=== PATIENT | male | born 1965 | race Caucasian/White ===

== ENCOUNTER 2017-10-06 00:54 | Inpatient (IN) | payer OTHER ==
[~2017-10-06] VITALS: Ht 180.3 cm; Wt 116.1 kg
[~2017-10-06 00:54] MED LIST: KEFLEX500 MG PO; NOHOMEMEDICATIONS
[2017-10-06 01:07] VITALS: BP 172/117
[2017-10-06 01:38] LABS: ABSOLUTE EOSINOPHILS 0.2 thou/uL (0.0-0.7); ABSOLUTE LYMPHOCYTES 1.8 thou/uL (0.8-5.3); ABSOLUTE MONOCYTES 0.5 thou/uL (0.0-1.2); ABSOLUTE NEUTROPHILS 4.8 thou/uL (1.6-8.1); BASOPHILS 0.7 %; EOSINOPHILS 2.6 %; HEMATOCRIT 47.7 % (42.0-52.0); HEMOGLOBIN 15.9 gm/dL (14.0-18.0); LYMPHOCYTES 24.4 %; MCH 28.9 pg (26.0-34.0); MCHC 33.4 g/dL (28.0-37.0); MCV 86.5 fL (80.0-100.0); MONOCYTES 6.9 %; MPV 7.9 fl. (7.2-11.1); NUCLEATED RBCS 0 /100WBC; PLATELET COUNT* 209 thou/uL (150-400); POLYS 65.4 %; RBC 5.51 mil/uL (4.50-6.00); RDW-CV 13.6 % (10.5-14.5); WBC 7.3 thou/uL (4.0-11.0)
[2017-10-06 01:42] LABS: AMP/METHAMP POSITIVE (Negative); BARBITURATES Negative (Negative); BENZODIAZEPINES Negative (Negative); COCAINE Negative (Negative); METHADONE Negative (Negative); OPIATES Negative (Negative); PCP Negative (Negative); THC Negative (Negative)
[2017-10-06 01:49] LABS: URINE BILIRUBIN NEGATIVE (Negative); URINE BLOOD NEGATIVE (Negative); URINE CLARITY CLEAR; URINE COLOR YELLOW; URINE GLUCOSE-RANDOM 3+ (Negative); URINE KETONES NEGATIVE (Negative); URINE LEUKOCYTES-REFLEX NEGATIVE (Negative); URINE NITRITE-REFLEX NEGATIVE (Negative); URINE PROTEIN NEGATIVE (Negative); URINE SPECIFIC GRAVITY <= 1.005 (1.005-1.030); URINE UROBILINOGEN 0.2 E.U./dl (0.2-1.0)
[2017-10-06 01:57] LABS: CALCIUM 9.1 mg/dL (8.5-10.1); CREATININE 1.6 mg/dL (0.6-1.3); POTASSIUM 5.1 mmol/L (3.5-5.1)
[2017-10-06 02:07] LABS: ALBUMIN 3.6 g/dL (3.4-5.0); TOTAL BILIRUBIN 0.6 mg/dL (<0.1-1.0); TOTAL PROTEIN 7.4 g/dL (6.4-8.2)
[2017-10-06 02:42] LABS: BE -2.9 mmol/L (-2 to +3); HCO3 22.2 mmol/L (22.0-26.0); PCO2 39.6 mmHg (35.0-45.0); PO2 79.8 mmHg (75.0-100.0); pH 7.366 (7.340-7.450)
[2017-10-06 03:15] VITALS: BP 164/103
--- NOTE | 2017-10-06 05:20 | NUR ---
PATIENT ARRIVED ON UNIT AT APPROX 0315. PATIENT ALERT AND ORIENTED TIMES FOUR. VERBALIZED UNDERSTANDING ON NUTRITION AND HAVING TO MAKE CHANGES IN ORDER TO HAVE THIS NOT HAPPEN AGAIN. UP AD JEFF. NO SKIN ISSUES. MAY NEED NICOTINE PATCH IF STAYING. PATIENTS BLOOD SUGAR IS DROPPING RAPIDLY ON THE DRIP. BP MEDICATION GIVEN. STATES THAT HE "RAN OUT OF HIS PRESCRIPTION AT HOME AND THE DR WOULD NOT REORDER THEM WITHOUT BLOOD WORK" NO COMPLAINTS OF PAIN OR DISCOMFORT.
[2017-10-06 07:08] LABS: HEMATOCRIT 43.5 % (42.0-52.0); HEMOGLOBIN 14.9 gm/dL (14.0-18.0); MCH 28.7 pg (26.0-34.0); MCHC 34.3 g/dL (28.0-37.0); MCV 83.5 fL (80.0-100.0); MPV 7.7 fl. (7.2-11.1); RBC 5.21 mil/uL (4.50-6.00); RDW-CV 13.5 % (10.5-14.5); WBC 7.6 thou/uL (4.0-11.0)
[2017-10-06 07:38] LABS: ALBUMIN 3.1 g/dL (3.4-5.0); CALCIUM 8.3 mg/dL (8.5-10.1); CREATININE 1.1 mg/dL (0.6-1.3); TOTAL BILIRUBIN 0.5 mg/dL (<0.1-1.0); TOTAL PROTEIN 6.3 g/dL (6.4-8.2)
[2017-10-06 07:39] LABS: POTASSIUM 3.3 mmol/L (3.5-5.1)
[2017-10-06 08:00] VITALS: BP 120/81
[2017-10-06 08:06] LABS: CHOLESTEROL 146 mg/dL (<200); HDL CHOLESTEROL 26 mg/dL (>40); LDL CHOLESTEROL 71 mg/dL (<100); TC:HDL 5.6 Ratio (Not establshd); TRIGLYCERIDE 245 mg/dL (<150); VLDL 49 mg/dL (<40)
[2017-10-06 08:07] LABS: SERUM ASSESSMENT Clear
[2017-10-06 14:19] VITALS: BP 120/81
--- NOTE | 2017-10-06 14:24 | NUR ---
CM ASSESSMENT: Pt is A&O. Resides at home with his sig other. Independent with ADLs, continues to work outside of the home. Positive for meth, CM discussed and Pt declined resources. Updated nurse, nurse also spoke with Pt regarding cessation. No DME. No hx of HH or SNF. Spoke with Dr Clahoun, Pt needs a PCP, new diabetic. Pt has no insurance. RAJESH scheduled an appt for Pt at [facility] with Bozena Toribio NP for October 22 at 940am. CM put info in Pt's dc summary. Pt in agreement with going to the appointment and understands the importance of the appt. CM to fax dc info to [facility] at dc [phone]
--- NOTE | 2017-10-06 16:22 | NUR ---
PAITNET CURRENTLY IN [employer] FOR HEPATOBILIARY SCAN. VITAL SIGNS STABLE AND PAITNET IN NO APPARENT DISTRESS AT THIS TIME. SR ON MONITOR. PAITNET DENIES PAIN. IV FLUID INFUSING PER ORDERS. AOX4 AND UP AD RODRIGO IN ROOM. PAITNET IS ON ROOM AIR. HOURLY ROUNDING COMPLETED FOR PATIENT SAFETY.
[2017-10-06 18:07] LABS: GLYCOHEMOGLOBIN (HGB A1C) 11.5 % (4.8-5.6)
[2017-10-06 20:00] VITALS: BP 152/101
--- NOTE | 2017-10-07 00:45 | NUR ---
ASSUMED PATIENT CARE AT 1900. PATIENT ALERT AND ORIENTED TIMES FOUR. FAMILY AT BEDSIDE AND VERY WORRIED. REASSURED FAMILY. EDUCATION DONE WITH PATIENT AND FAMILY. MANAGER HUMAN CAPITAL COMPLETED DOCUMENTED. IV INFUSING WELL. RFUSED LOVENOX, STATES " I DO NOT WANT TO TAKE ANYTING, NO PAIN MEDS, ETC" NO COMPLAINTS OF PAIN OR DISCOMFORT. WILL CONTINUE TO MONITOR.
[2017-10-07 00:53] VITALS: BP 118/75
[2017-10-07 04:29] VITALS: BP 135/93
[2017-10-07 05:18] LABS: HEMATOCRIT 43.8 % (42.0-52.0); MCH 28.8 pg (26.0-34.0); MCHC 34.2 g/dL (28.0-37.0); MCV 84.2 fL (80.0-100.0); RBC 5.21 mil/uL (4.50-6.00); RDW-CV 14.1 % (10.5-14.5); WBC 7.4 thou/uL (4.0-11.0)
[2017-10-07 05:47] LABS: ALBUMIN 2.9 g/dL (3.4-5.0); CALCIUM 8.1 mg/dL (8.5-10.1); CREATININE 1.1 mg/dL (0.6-1.3); MAGNESIUM 1.9 mg/dL (1.8-2.4); POTASSIUM 4.1 mmol/L (3.5-5.1); TOTAL BILIRUBIN 0.4 mg/dL (<0.1-1.0); TOTAL PROTEIN 5.9 g/dL (6.4-8.2)
--- NOTE | 2017-10-07 07:03 | NUR ---
Patient and sig other rested in bed through the night. No complaints of pain or discomot. Hopes to be able to go home soon. Non compliant with diet. Blood sugars reflect this. Has been getting moderate dose sliding scale. IV taped at this time so patient can get up to shower. Hourlyrounding completed as documented. Up ad je
[2017-10-07 07:30] VITALS: BP 138/111
--- NOTE | 2017-10-07 10:54 | NUR ---
RECEIVED PT CARE 0700. PT IS ALERT AND ORIENTED X4. VSS. INTELLIGENCE OPERATIONS SPECIALIST TRACING SR. PATIENT DENIES ANY SOA. O2 SAT 95% ON ROOM AIR. PATIENT IS VERY ANXIOUS TO DISCHRAGE HOME. IV SALINE LOCKED. PATIENT REMOVED HIS INTELLIGENCE OPERATIONS SPECIALIST TO SHOWER AND REQUESTED NOT TO PUT IT BACK ON AFTER HIS SHOWER. AM ASSESSMENT CHARTED. MEDS PER SEP. DR PRIUTT ON FLOOR. WILL CONTINUE TO MONITOR.
[2017-10-07 11:49] VITALS: BP 150/99
[2017-10-07 15:55] VITALS: BP 149/98
--- NOTE | 2017-10-07 18:36 | NUR ---
PATIENT PROGRESSING TOWARDS GOALS. BLOOD SUGARS BETTER CONTROLLED. TOLERATING HIS DIET WELL WITHOUT NAUSEA OR VOMITING. UP INDEPENDENTLY IN ROOM WITH BATHROOM PRIVILEDGES. GAIT IS STEADY. MANAGER COMPENSATION CONTINUES TO TRACE SR. PLANNING FOR DC TOMORROW IF STABLE.
[2017-10-07 20:00] VITALS: BP 139/76
[2017-10-08] VITALS: BP 154/96
[2017-10-08 04:00] VITALS: BP 146/94
--- NOTE | 2017-10-08 04:35 | NUR ---
Assumed patient care at 1900/ Patient alert and oriented times four. Up ad je in room. No complains of pain or discomort noted. Insulin given per sliing scale. Education on diet given to patient. HOurly rounding and communication engineer completed as documented.
--- NOTE | 2017-10-08 07:25 | NUR ---
CHANGE OF SHIFT, BEDSIDE REPORT GIVEN ASSUMED PATIENT CARE PATIENT ASLEEP IN BED WITH GIRLFRIEND
[2017-10-08 08:00] VITALS: BP 142/89
--- NOTE | 2017-10-08 08:30 | NUR ---
MALE MODEL INFORMED NURSE PATIENT NOT FOUND IN ROOM HEART MONITOR LEFT ON BED AND BELONGINGS STILL IN ROOM
--- NOTE | 2017-10-08 09:30 | NUR ---
NOTIFIED DR PRUITT AND FRAMING MILL SUPERVISOR AND SECURITY THAT PATIENT HAS BEEN OUT OF ROOM FOR APPROXIMATELY 1 HR WILL CONTINUE TO MONITOR
--- NOTE | 2017-10-08 10:20 | NUR ---
PATIENT BACK TO AND GIRLFRIEND PRESENT NOTIFIED DR PRUITT ORDERS GIVEN FOR URINE DRUG SCREEN AND DR PRUITT WILL BE HERE SOON TO SEE PATIENT AND POTENIAL DISCHARGE PENDING
[2017-10-08] MEDS ORDERED: LISINOPRIL10 MG PO (12:15)
[2017-10-08] MEDS ORDERED: GLUCOTROL5 MG PO (12:16)
[2017-10-08] MEDS ORDERED: METFORMIN HCL500 MG PO (12:17)
[2017-10-08 12:21] VITALS: BP 120/81
--- NOTE | 2017-10-08 12:30 | NUR ---
PATIENT DCD TO HOME ALL DC INSTRUCTIUONS GIVEN AND SIGNED COPIES PROVIDED IV AND HEART MONITOR REMOVED AND PERSONAL BELONGINGS RETURNED PATIENT LEFT AMBULATOIRY GOOD CONDITION
== END 2017-10-08 13:25 | disposition home or self-care (01) | DRG 638 ==
LOC: M.ERS 00:54 → M.TBA-ER 02:32 → M.2W 02:32
PROVIDERS: Emergency Medicine; Internal Medicine; ADMIT Internal Medicine
DX: E11.00 Type 2 diabetes mellitus with hyperosmolarity without nonketotic hyperglycemic-hyperosmolar coma (NKHHC) (principal); N17.9 Acute kidney failure, unspecified; K59.00 Constipation, unspecified; I16.0 Hypertensive urgency; K80.20 Calculus of gallbladder without cholecystitis without obstruction; F15.90 Other stimulant use, unspecified, uncomplicated; Z79.899 Other long term (current) drug therapy

== ENCOUNTER 2020-02-10 02:38 | Inpatient (IN) | payer OTHER ==
[~2020-02-10] VITALS: Ht 182.9 cm; Wt 117.4 kg
[2020-02-10] VITALS (7 sets, daily range): BP systolic 138–183; BP diastolic 88–125
[~2020-02-10 02:38] MED LIST changes: +GLUCOTROL5 MG PO; +LISINOPRIL10 MG PO; +METFORMIN HCL500 MG PO
[2020-02-10 03:02] LABS: ABSOLUTE BASOPHILS 0.1 thou/uL (0.0-0.2); ABSOLUTE EOSINOPHILS 0.3 thou/uL (0.0-0.7); ABSOLUTE LYMPHOCYTES 2.5 thou/uL (0.8-5.3); ABSOLUTE MONOCYTES 0.7 thou/uL (0.0-1.2); BASOPHILS 0.8 %; EOSINOPHILS 2.9 %; HEMATOCRIT 41.6 % (42.0-52.0); HEMOGLOBIN 14.6 gm/dL (14.0-18.0); LYMPHOCYTES 26.3 %; MCH 29.7 pg (26.0-34.0); MCHC 35.1 g/dL (28.0-37.0); MCV 84.8 fL (80.0-100.0); MONOCYTES 7.3 %; MPV 7.6 fl. (7.2-11.1); NUCLEATED RBCS 0 /100WBC; PLATELET COUNT* 238 thou/uL (150-400); POLYS 62.7 %; RDW-CV 13.6 % (10.5-14.5); WBC 9.6 thou/uL (4.0-11.0)
[2020-02-10 03:19] LABS: CALCIUM 8.8 mg/dL (8.5-10.1); CREATININE 4.3 mg/dL (0.6-1.3); POTASSIUM 3.8 mmol/L (3.5-5.1)
[2020-02-10 03:21] LABS: PROTIME 10.7 Seconds (9.20-11.50)
[2020-02-10 03:24] LABS: ALBUMIN 4.1 g/dL (3.4-5.0); TOTAL BILIRUBIN 0.4 mg/dL (<0.1-1.0)
[2020-02-10 03:45] LABS: URINE BILIRUBIN NEGATIVE (Negative); URINE BLOOD 1+ (Negative); URINE CLARITY CLEAR; URINE COLOR YELLOW; URINE GLUCOSE-RANDOM TRACE (Negative); URINE KETONES NEGATIVE (Negative); URINE LEUKOCYTES-REFLEX NEGATIVE (Negative); URINE NITRITE-REFLEX NEGATIVE (Negative); URINE PROTEIN TRACE (Negative); URINE UROBILINOGEN 0.2 E.U./dl (0.2-1.0)
[2020-02-10 03:54] LABS: AMP/METHAMP POSITIVE (Negative); BARBITURATES Negative (Negative); BENZODIAZEPINES Negative (Negative); COCAINE Negative (Negative); METHADONE Negative (Negative); OPIATES Negative (Negative); PCP Negative (Negative); THC Negative (Negative)
[2020-02-10 04:13] LABS: BACTERIA-REFLEX 1-9 Few /HPF (None Seen); CASTS None Seen /LPF (None Seen); CRYSTALS None Seen /LPF (None Seen); MUCUS 0-3 Light strn/LPF (None Seen); SQUAMOUS 0-3 Few /LPF (0-3); URINE RBC 3-10 Few /HPF (0-2); URINE WBC-REFLEX None Seen /HPF (0-5)
[2020-02-10 10:17] LABS: ALBUMIN 4.1 g/dL (3.4-5.0); CALCIUM 9.1 mg/dL (8.5-10.1); CREATININE 4.3 mg/dL (0.6-1.3); POTASSIUM 4.3 mmol/L (3.5-5.1); TOTAL BILIRUBIN 0.5 mg/dL (<0.1-1.0); TOTAL PROTEIN 7.9 g/dL (6.4-8.2)
--- NOTE | 2020-02-10 10:33 | EKG ---
[place] [address] ELECTROCARDIOGRAM REPORT Name: KRYSTEN MCCULLOUGHIN Nadege Room: [address] ADM IN [facility].#: [id number] Admission: 02/10/20 Attend Phys: Alida Calhoun, Discharge: Date of : 67 Date of Service: 02/10/20 0301 Report #: [id number] THIS REPORT FOR: //name// [facility] ED Test Date: 2020-02-10 Test Time: 03:01:14 Pat Name: ALL MCCULLOUGH Department: Room: [facility] Gender: M Technical Director: LORENE : 1965 Requested By: Trenton Gamez Order Number: [id number] MD: Jeff Augustin Measurements Intervals [place] Rate: 86 P: 43 [place]: 170 QRS: 97 QRSD: 166 T: 3 QT: 427 QTc: 511 Interpretive Statements Sinus rhythm Probable left atrial enlargement RBBB and LPFB No previous ECG available for comparison Electronically Signed On 02-10-2020 10:33:43 CDT by Jeff Augustin [email or web address] <ELECTRONICALLY SIGNED> By: Jeff Augustin MD, [facility] 02/10/20 1033 0301 030 Jeff Augustin MD, [facility] /EPI
[2020-02-11] VITALS (7 sets, daily range): BP systolic 138–189; BP diastolic 87–122
[2020-02-11 05:23] LABS: ABSOLUTE EOSINOPHILS 0.2 thou/uL (0.0-0.7); ABSOLUTE LYMPHOCYTES 1.6 thou/uL (0.8-5.3); ABSOLUTE MONOCYTES 0.5 thou/uL (0.0-1.2); ABSOLUTE NEUTROPHILS 5.1 thou/uL (1.6-8.1); BASOPHILS 0.6 %; EOSINOPHILS 2.6 %; HEMATOCRIT 41.9 % (42.0-52.0); HEMOGLOBIN 14.6 gm/dL (14.0-18.0); LYMPHOCYTES 21.9 %; MCH 29.6 pg (26.0-34.0); MCHC 34.9 g/dL (28.0-37.0); MCV 84.7 fL (80.0-100.0); MONOCYTES 6.8 %; MPV 7.7 fl. (7.2-11.1); NUCLEATED RBCS 0 /100WBC; PLATELET COUNT* 224 thou/uL (150-400); POLYS 68.1 %; RBC 4.95 mil/uL (4.50-6.00); RDW-CV 13.7 % (10.5-14.5); WBC 7.4 thou/uL (4.0-11.0)
[2020-02-11 05:34] LABS: ALBUMIN 3.9 g/dL (3.4-5.0); CALCIUM 8.8 mg/dL (8.5-10.1); CREATININE 4.7 mg/dL (0.6-1.3); MAGNESIUM 2.1 mg/dL (1.8-2.4); PHOSPHORUS* 5.1 mg/dL (2.5-4.9); POTASSIUM 4.4 mmol/L (3.5-5.1)
[2020-02-11 05:43] LABS: ALKALINE PHOSPHATASE 77 U/L (46-116); ANION GAP 12 mmol/L (7-16); BUN 60 mg/dL (7-18); CALCIUM 8.9 mg/dL (8.5-10.1); CHLORIDE 102 mmol/L (98-107); CHOLESTEROL 204 mg/dL (<200); CO2 24 mmol/L (21-32); CREATININE 4.7 mg/dL (0.6-1.3); GLUCOSE 114 mg/dL (70-99); HDL CHOLESTEROL 29 mg/dL (>40); LDL CHOLESTEROL 130 mg/dL (<100); POTASSIUM 4.6 mmol/L (3.5-5.1); SGOT 20 U/L (15-37); SGPT 31 U/L (30-65); SODIUM 138 mmol/L (136-145); TOTAL BILIRUBIN 0.6 mg/dL (<0.1-1.0); TOTAL PROTEIN 7.3 g/dL (6.4-8.2); TRIGLYCERIDE 229 mg/dL (<150); VLDL 46 mg/dL (<40)
[2020-02-11 05:46] LABS: SERUM ASSESSMENT Clear
--- NOTE | 2020-02-11 10:52 | CON ---
[address] [address] CONSULTATION Name: ALL MCCULLOUGH Room: [address] IN .R.#: [id number] Admission: 02/10/20 Attend Phys: Alida Calhoun MD Discharge: Date of : 67 Report #: [id number] THIS REPORT FOR: //name// cc: BATSHEVA Roman family physician/PCP BATSHEVA - No family physician/PCP ~ THIS REPORT FOR: //name// CC: BATSHEVA physician/PCP Alida Calhoun DATE OF SERVICE: 02/10/2020 HISTORY OF PRESENT ILLNESS: This patient is a 54-year-old male patient who was seen by me for possibility of stroke. This patient does not provide any reliable history. He has a garbled speech, looks like it is going on for at least a few days. He has told Emergency Room that it is started the day before. His MRI was attempted last night, but he did not cooperate. Multiple abnormalities have been found in this patient. He has a markedly decreased GFR and he is in kidney failure. He did not complete MRI even with Ativan. REVIEW OF SYSTEMS: Very limited. Record indicates that he has high blood pressure and diabetes and uses methamphetamines. He also smokes. It is unknown whether the patient had alcohol use or not. A 14-point review of system was attempted and that is all we could get. PAST MEDICAL HISTORY: Unavailable. FAMILY HISTORY: Unavailable. SOCIAL HISTORY: He uses drugs. PHYSICAL EXAMINATION: His examination was carried out this morning as well as this afternoon. It is very limited. He has a very garbled and virtually un-understandable speech. He moves all 4 extremities. Sometime he will do to the command. He does not appear to have any meningeal sign. He has no respiratory difficulty. His blood pressure is 142/94, respiration is 20, pulse is 82, temperature is 98.1. LABORATORY DATA: His white count is 9.6. He is in kidney failure. His MRI could not be completed. IMPRESSION: Impression is very difficult to form in this patient. This patient may have encephalopathy. On the other hand, this patient also may have had a stroke because he takes methamphetamines. He has not been able to cooperate with MRI, so I am going to cancel the MRI of carotids and we will get a carotid Doppler done. I will get an EEG done. We will see what [place] [address] CONSULTATION Name: JAMELALL Room: [address] IN [facility]#: [id number] Admission: 02/10/20 Attend Phys: Alida Calhoun MD Discharge: Date of : 67 Report #: [id number] about further management after that. Thank you very much for this referral. On two visits about 35 minutes of time was spent taking care of this patient today and majority of that time was spent trying to coordinate his care and trying to consult him which did not work that much. <ELECTRONICALLY SIGNED> By: Mauro Calhoun MD 02/11/20 1052 1406 [id number] Calhoun MD /nt
[2020-02-12 00:27] VITALS: BP 180/104
[2020-02-12 04:30] VITALS: BP 180/120
[2020-02-12 05:38] LABS: GLYCOHEMOGLOBIN (HGB A1C) 6.5 % (4.8-5.6)
[2020-02-12 06:26] VITALS: BP 177/102
[2020-02-12 08:00] VITALS: BP 170/113
--- NOTE | 2020-02-25 13:14 | CON ---
[address] [address] CONSULTATION Name: ALL MCCULLOUGH Nadege Room: [address] IN .R.#: [id number] Admission: 02/10/20 Attend Phys: Alida Calhoun MD Discharge: 02/12/20 Date of : 67 Report #: [id number] THIS REPORT FOR: //name// cc: BATSHEVA Roman family physician/PCP BATSHEVA - No family physician/PCP ~ THIS REPORT FOR: //name// CC: BATSHEVA physician/PCP Alida Calhoun DATE OF SERVICE: 02/10/2020 CONSULTING PHYSICIAN: Dr. Calhoun. REASON FOR CONSULTATION: Acute kidney injury. HISTORY OF PRESENT ILLNESS: A 54-year-old gentleman admitted with altered mental status, concern for possible stroke. Creatinine was 4.3 on admission. In 2018, creatinine was 1.1. He was taking lisinopril. His urine drug screen was positive for amphetamines. Neurology has been consulted. History is obtained largely through chart review. REVIEW OF SYSTEMS: Constitutional, psych, heme, eyes, ENT, respiratory, cardiac, GI, and endocrine, all negative except as documented above and as best as can be ascertained from chart review. PAST MEDICAL HISTORY: Diabetes, hypertension, substance abuse. SOCIAL HISTORY: Positive for tobacco, and urine drug screen positive for methamphetamines. FAMILY HISTORY: Not pertinent in this 54-year-old gentleman. CURRENT MEDICATIONS: Reviewed. PHYSICAL EXAMINATION: VITAL SIGNS: Blood pressure 142/94, pulse 82, respirations 20, temperature 36.7. GENERAL: No acute distress; somnolent. EYES: Closed. EARS: Externally normal. CARDIOVASCULAR: Regular rate. LUNGS: No crackles. ABDOMEN: Soft. MUSCULOSKELETAL: Nontender. PSYCHIATRIC: Altered mental status. [address] [address] CONSULTATION Name: ALL MCCULLOUGH Room: [address]#: [id number] Admission: 02/10/20 Attend Phys: Alida Calhoun MD Discharge: 02/12/20 Date of : 67 Report #: [id number] LABORATORY DATA: White cell count 9.6, hemoglobin 14.6, platelets 238. Sodium 136, potassium 4.3, chloride 100, bicarbonate 24, BUN 57, creatinine 4.3, glucose 111, calcium 9.1, albumin 4.1. ASSESSMENT: 1. Acute kidney injury with admission creatinine of 4.3. In 2018, creatinine was 1.1. CK is 538. This is also in the setting of lisinopril. UA is noted. 2. Rhabdomyolysis with a CK of 538 in the setting of methamphetamine use. 3. Diabetes. 4. Hypertension. 5. Substance abuse with positive marijuana use and urine drug screen positive for methamphetamines. 6. Altered mental status, being evaluated for acute stroke. PLAN: 1. Continue IV fluids. 2. Hematuria, he will need a repeat UA. 3. Check CK in the a.m. 4. Discontinue milk of magnesia. 5. Check labs again in the a.m. Thank you for requesting my opinion in the care and management of this patient. <ELECTRONICALLY SIGNED> By: Kelly Smith MD 02/25/20 1314 1617 2015Alillie Smith MD /nt
--- NOTE | 2020-02-29 20:00 | EEG ---
[address] [address] EEG STUDY REPORT Name: ALL MCCULLOUGH Nadege Room: [address] IN M.R.#: [id number] Admission: 02/10/20 Attend Phys: Alida Calhoun MD Discharge: 02/12/20 Date of : 67 Report #: [id number] THIS REPORT FOR: //name// CC: [facility] physician/PCP Alida Calhoun DATE OF SERVICE: 02/10/2020 This patient is being evaluated for altered mental status. EEG was done by placing the electrode by standard 10-20 system of electrode placement. Both referential and sequential montages were used for recording. Background activity in this patient's EEG is about 7 Hz and 30 microvolts. The patient appeared to be responding poorly during most of this EEG. He also appeared to be asleep during part of this EEG. No active epileptiform activity was noticed. IMPRESSION: This patient's EEG is intermixed with some theta range slowing on both sides. That is a nonspecific abnormality, which can occur with encephalopathy, effect of psychotropic medication, dementia, etc. Clinical correlation is recommended. <ELECTRONICALLY SIGNED> By: Mauro Calhoun MD 02/29/201999 0921Parivan Calhoun MD /nt
== END 2020-02-12 10:45 | disposition left against medical advice (07) | DRG 64 ==
LOC: M.ERS 02:38 → M.2W 04:52 → M.TBA-ER 04:52 → M.2W 05:43
PROVIDERS: Emergency Medicine Emergency Medical Services; Internal Medicine; Internal Medicine Nephrology; ADMIT Internal Medicine; ATTEND Internal Medicine
DX: I63.9 Cerebral infarction, unspecified (principal); G92 Toxic encephalopathy; N17.0 Acute kidney failure with tubular necrosis; M62.82 Rhabdomyolysis; N13.30 Unspecified hydronephrosis; G81.91 Hemiplegia, unspecified affecting right dominant side; E86.0 Dehydration; E11.9 Type 2 diabetes mellitus without complications; I10 Essential (primary) hypertension; F12.10 Cannabis abuse, uncomplicated; F15.10 Other stimulant abuse, uncomplicated; Z79.84 Long term (current) use of oral hypoglycemic drugs; Z79.899 Other long term (current) drug therapy; Z03.818 Encounter for observation for suspected exposure to other biological agents ruled out; R47.81 Slurred speech; R29.810 Facial weakness

== ENCOUNTER 2020-03-09 17:27 | Emergency (ER) | payer OTHER ==
[~2020-03-09] VITALS: Ht 182.9 cm; Wt 99.8 kg
[2020-03-10] MEDS ORDERED: ZOFRAN ODT4 MG DISSOLVE (01:13)
== END 2020-03-09 18:00 ==
LOC: M.ERS 17:27
DX: Z02.89 Encounter for other administrative examinations (principal)

== ENCOUNTER 2020-03-09 23:46 | Emergency (ER) | payer OTHER ==
[~2020-03-09] VITALS: Ht 180.3 cm; Wt 108.9 kg
[2020-03-10 00:16] LABS: ABSOLUTE BASOPHILS 0.1 thou/uL (0.0-0.2); ABSOLUTE EOSINOPHILS 0.3 thou/uL (0.0-0.7); ABSOLUTE LYMPHOCYTES 2.9 thou/uL (0.8-5.3); ABSOLUTE MONOCYTES 0.6 thou/uL (0.0-1.2); ABSOLUTE NEUTROPHILS 4.8 thou/uL (1.6-8.1); BASOPHILS 0.7 %; EOSINOPHILS 3.5 %; HEMATOCRIT 39.1 % (42.0-52.0); HEMOGLOBIN 13.8 gm/dL (14.0-18.0); LYMPHOCYTES 33.1 %; MCH 29.6 pg (26.0-34.0); MCHC 35.4 g/dL (28.0-37.0); MCV 83.7 fL (80.0-100.0); MPV 8.3 fl. (7.2-11.1); NUCLEATED RBCS 0 /100WBC; PLATELET COUNT* 249 thou/uL (150-400); POLYS 55.7 %; RBC 4.67 mil/uL (4.50-6.00); RDW-CV 13.7 % (10.5-14.5); WBC 8.7 thou/uL (4.0-11.0)
[2020-03-10 00:19] LABS: CREATININE 3.4 mg/dL (0.6-1.3); POTASSIUM 3.7 mmol/L (3.5-5.1)
[2020-03-10 00:24] LABS: ALBUMIN 3.8 g/dL (3.4-5.0); TOTAL BILIRUBIN 0.3 mg/dL (<0.1-1.0); TOTAL PROTEIN 7.8 g/dL (6.4-8.2)
[2020-03-10 00:25] LABS: URINE BILIRUBIN NEGATIVE (Negative); URINE BLOOD TRACE (Negative); URINE CLARITY CLEAR; URINE COLOR YELLOW; URINE GLUCOSE-RANDOM TRACE (Negative); URINE KETONES NEGATIVE (Negative); URINE LEUKOCYTES-REFLEX NEGATIVE (Negative); URINE NITRITE-REFLEX NEGATIVE (Negative); URINE PROTEIN NEGATIVE (Negative); URINE UROBILINOGEN 0.2 E.U./dl (0.2-1.0)
[2020-03-10] MEDS ORDERED: ZOFRAN ODT4 MG DISSOLVE (01:13)
[2020-03-10 01:28] VITALS: BP 127/83
--- NOTE | 2020-03-13 14:25 | EKG ---
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
== END 2020-03-10 01:28 | disposition home or self-care (01) ==
LOC: M.ERS 23:46
PROVIDERS: Emergency Medicine Emergency Medical Services
DX: R10.11 Right upper quadrant pain (principal); E11.9 Type 2 diabetes mellitus without complications; Z79.899 Other long term (current) drug therapy